=== PATIENT | female | born 1950 | race Caucasian/White ===

== ENCOUNTER → 2016-11-08 | Outpatient (CLI) | payer MEDICARE, OTHER ==
[~2016-11-08] MED LIST: AMOXICILLIN PO; ASPIRIN PO; CLARITIN10 MG PO; CRESTOR PO; LIPITOR PO; LISINOPRIL PO; MULTIVITAMIN W/1 TAB PO; OMEPRAZOLE40 M1 PO; PAXIL10 MG PO; PRINIVIL20 M1 PO; PRISTIQ50 MG PO; REQUIP1 MG PO; SYNTHROID PO; VITAMIN D250000 UNIT; ZOLOFT PO
--- NOTE | ~2016-11-08 | EKG ---
PATIENT: MARVA GRAHAM UNIT #: [id number] Ventricular Rate: 64 BPM Atrial Rate: 64 BPM P-R Interval: 150 ms QRS Duration: 88 ms Q-T Interval: 444 ms QTC Calculation(Bezet): 458 ms P Wells: 35 degrees Calculated R Wells: -6 degrees Calculated T Wells: 26 degrees Diagnosis Line: Normal sinus rhythm Diagnosis Line: Normal ECG Diagnosis Line: No previous ECGs available Diagnosis Line: Confirmed by ERON SAAB MD ([id number]) on 11/09/2016 Diagnosis Line: 6:20:54 PM INTERPRETING MD: KAISER MILLARD
[2016-11-08 15:17] LABS: CALCIUM SERUM 9.2 mg/dL (8.4-10.2); GLOM FILT RATE Estimated 59.1 mL/min (>60); POTASSIUM 4.3 mmol/L (3.5-5.1)
== END | disposition home or self-care (01) ==
LOC: CAMB 12:43
PROVIDERS: Surgery
DX: Z01.818 Encounter for other preprocedural examination (principal); K42.9 Umbilical hernia without obstruction or gangrene
CPT/HCPCS: 36415; 80048; 93005

== ENCOUNTER → 2016-11-14 | Day surgery (SDC) | payer MEDICARE, OTHER ==
--- NOTE | ~2016-11-14 | OR ---
Unit #: [id number] #: [id number] Patient: MARVA GRAHAM [id number] [address] [place], [place] [address] [id number] O MR#: [id number] NAME: MARVA GRAHAM ROOM: Date of Procedure: 11/14/2016 Admission Date: 11/14/2016 Surgeon: Deandre Fox Jr., M.D. : 1950 Attending Physician: Deandre Fox Jr., M.D. Referring Physician: Deandre Fox Jr., M.D. Primary Care Physician: Otilia Roth M.D. OPERATIVE REPORT INDICATIONS FOR PROCEDURE The patient is a 66-year-old white female, recently presented to the office complaining of a bulge and knot in the umbilical area and was noted to have a chronic incarcerated umbilical hernia. She does have some discomfort related to it at times. She is brought in this time for reduction and repair of this through an open incision. PREOPERATIVE DIAGNOSIS Chronic incarcerated umbilical hernia. POSTOPERATIVE DIAGNOSIS Chronic incarcerated umbilical hernia, noting approximately a 1.5 cm defect. ANESTHESIA General with LMA and 0.5% Marcaine with epinephrine locally. PROCEDURE PERFORMED Reduction and repair of umbilical hernia. DESCRIPTION OF PROCEDURE The patient was positioned in the supine position. After being anesthetized with LMA, she was prepped and draped in routine fashion for umbilical hernia repair. The periumbilical area was locally anesthetized with 0.5% Marcaine with epinephrine and an incision was made over the superior aspect of the umbilicus with a keyhole type incision with a #15 blade scalpel. The incision was carried down to the subcutaneous tissue and to the fascia. There was an obvious umbilical hernia present with approximately 1.5 cm fascial defect. The hernia sac itself in the fatty tissue was then freed from the posterior dermis of the umbilicus and the base of it was then scored with a Bovie cautery and the tissue reduced back into the abdomen. A small Ventralex mesh was then placed brought up against the anterior abdominal wall and tacked in place with the straps being tacked to the fascia with interrupted 0 Ethibond sutures. The fascial defect was closed with several interrupted 0 Vicryl sutures using modified Meliton-Howard type stitches. The wound was irrigated with antibiotic solution, which was also used to presoak the mesh and the dermis of the umbilicus was tacked to the fascia with 3-0 Vicryl suture. The subcutaneous tissue approximated with interrupted 3-0 Vicryl sutures. Skin edges approximated with stainless-steel skin clips and skin stapling device. Sterile dressings were applied externally. Estimated blood loss less than 30 mL. The patient received less than 1000 mL crystalloid Unit #: [id number] #: [id number] Patient: MARVA GRAHAM solution during the procedure. Sponges and instrument counts were correct x3. No drains were used. No complications. The patient was taken to the recovery room with stable vital signs in satisfactory condition. Dictated by... Deandre Fox Jr., MNathaniel MONTOYA/lorena TD: 11/15/2016 00:43 JOB #: [id number] OPERATIVE REPORT X Deandre Fox MD X PROCEDURE OPERATIVE NOTE
== END | disposition home or self-care (01) ==
LOC: CSUR 06:56
DX: K42.0 Umbilical hernia with obstruction, without gangrene (principal); I10 Essential (primary) hypertension; E03.9 Hypothyroidism, unspecified; R73.03 Prediabetes; E66.9 Obesity, unspecified; M19.90 Unspecified osteoarthritis, unspecified site; M41.9 Scoliosis, unspecified; K21.9 Gastro-esophageal reflux disease without esophagitis; Z91.040 Latex allergy status; Z88.5 Allergy status to narcotic agent; Z91.048 Other nonmedicinal substance allergy status; Z90.49 Acquired absence of other specified parts of digestive tract; Z90.710 Acquired absence of both cervix and uterus
CPT/HCPCS: 82947; J0690; J1885; J2250; J3010